=== PATIENT | male | born 1955 | race Two or more races ===

== ENCOUNTER → 2016-10-03 | Outpatient (CLI) | payer BC ==
[~2016-10-03] MED LIST: ADVIL200 MG PO; COLACE100 MG PO; LEVAQUIN250 MG PO; NORCO 325-5 MG1 TAB PO; THERA M PLUS T1 EACH PO
== END | disposition short-term general hospital (02) ==
LOC: CLONCO 14:20
DX: C23 Malignant neoplasm of gallbladder (principal); J02.9 Acute pharyngitis, unspecified; Z92.21 Personal history of antineoplastic chemotherapy; Z92.3 Personal history of irradiation

== ENCOUNTER → 2017-01-02 | Outpatient (CLI) | payer BC | END | disposition short-term general hospital (02) | LOC: CLONCO 09:51 | DX: Z08 Encounter for follow-up examination after completed treatment for malignant neoplasm (principal); Z85.89 Personal history of malignant neoplasm of other organs and systems; Z90.49 Acquired absence of other specified parts of digestive tract; Z92.3 Personal history of irradiation ==